=== PATIENT | female | born 1990 | race African-American/Black ===

== ENCOUNTER 2019-06-15 18:30 | Emergency (ER) | payer MEDICAID ==
[~2019-06-15] VITALS: Ht 170.2 cm; Wt 100.0 kg
[2019-06-15] MEDS ORDERED: HYDROCODONE/ACETAMINOPHEN 5/325MG TABLET PO ONE (20:15)
[2019-06-15] MEDS ORDERED: BACITRACIN ZINC OINT UDPKT TOP ONE (20:15)
[2019-06-15] MEDS ORDERED: LIDOCAINE HCL/PF 1% 10 MG/ML 5ML VIAL IJ ONE (21:15)
[2019-06-15] MEDS ORDERED: KETOROLAC 30MG/ML VIAL IM ONE (22:15)
[2019-06-16 06:06] VITALS: BP 135/82
== END 2019-06-16 06:08 | disposition home or self-care (01) ==
LOC: ER 18:30
DX: S00.83XA Contusion of other part of head, initial encounter (principal); S02.2XXA Fracture of nasal bones, initial encounter for closed fracture; Y08.89XA Assault by other specified means, initial encounter; Y93.89 Activity, other specified; Y92.89 Other specified places as the place of occurrence of the external cause; Y99.8 Other external cause status
CPT/HCPCS: 70450; 70486; 73140; 81025; 96372; 99284; C1893; J1885; J3490

== ENCOUNTER 2025-06-12 00:57 | Emergency (ER) | payer MEDICAID ==
[~2025-06-12] VITALS: Ht 182.9 cm; Wt 105.0 kg
[2025-06-12 01:00] VITALS: O2SAT 98
[2025-06-12 03:36] LABS: BASOPHILS % 0.5 % (0.0-2.0); EOSINOPHILS % 0.8 % (0.0-5.0); HEMATOCRIT. 39.6 % (36.0-48.0); HEMOGLOBIN. 13.1 g/dL (12.0-16.0); LYMPHOCYTES % 26.7 % (20.0-50.0); MEAN PLATELET VOLUME 7.8 fl (7.4-10.4); MONOCYTES % 5.3 % (2.0-8.0); NEUTROPHILS % 66.7 % (40.0-76.0); PLATELET 383 x1000/uL (130-400); RED BLOOD CELL COUNT 4.25 mill/uL (4.2-5.4); RED CELL DISTRIBUTION WIDTH 12.8 % (11.6-14.6)
[2025-06-12 03:48] LABS: CREATININE 0.8 mg/dL (0.6-1.0); UREA NITROGEN BLOOD 7 mg/dL (9-23)
[2025-06-12 03:49] LABS: ETHANOL BLOOD < 10 mg/dL (<10)
[2025-06-12 03:54] LABS: CLARITY URINE CLOUDY (CLEAR); COLOR URINE YELLOW (YELLOW); GLUCOSE URINE NEGATIVE (NEGATIVE); KETONES URINE NEGATIVE (NEGATIVE); LEUKOCYTE ESTERASE URINE NEGATIVE (NEGATIVE); NITRITE URINE NEGATIVE (NEGATIVE); OCCULT BLOOD URINE NEGATIVE (NEGATIVE); PH URINE 5.5 (4.5-8.0); PROTEIN URINE NEGATIVE (NEGATIVE); SPECIFIC GRAVITY URINE 1.015 (1.005-1.030); UROBILINOGEN URINE 1.0 E.U./dL (0.2-1.0)
[2025-06-12] MEDS: QUETIAPINE FUMARATE 50MG TABLET PO NR (04:06)
[2025-06-12] MEDS: LOPERAMIDE HCL 2MG CAPSULE PO NR (04:06)
[2025-06-12 04:15] LABS: HCG SCREEN NEGATIVE
[2025-06-12 04:32] LABS: *AMPHETAMINES SCREEN URINE PRESUMPTIVE POSITIVE (NEGATIVE); *BARBITURATES SCREEN URINE NEGATIVE (NEGATIVE); *BENZODIAZEPINES SCREEN URINE NEGATIVE (NEGATIVE); *COCAINE SCREEN URINE NEGATIVE (NEGATIVE); CANNABINOID URINE SCREEN NEGATIVE (NEGATIVE); ECSTASY MDMA SCREEN URINE NEGATIVE (NEGATIVE); METHADONE URINE SCREEN NEGATIVE (NEGATIVE); OPIATES URINE SCREEN NEGATIVE (NEGATIVE); PHENCYCLIDINE URINE SCREEN NEGATIVE (NEGATIVE)
[2025-06-12 04:42] LABS: SQUAMOUS EPITHELIAL CELL URINE FEW /lpf (RARE/1+)
[2025-06-12 04:45] LABS: RBC URINE 0-2 /hpf (0-2); WBC URINE 0-2 /hpf (0-2)
[2025-06-12 04:46] LABS: BACTERIA URINE 1+
[2025-06-12 05:01] LABS: ASPARTATE AMINOTRANSFERASE 14 IU/L (<34); BILIRUBIN DIRECT 0.1 mg/dL (<=3.0); BILIRUBIN TOTAL 0.4 mg/dL (0.1-1.0); PROTEIN TOTAL 7.0 g/dL (6.0-8.3)
[2025-06-12 09:52] VITALS: BP 113/74; PULSE 97; RESP 16; TEMP 37.3; O2SAT 97
== END 2025-06-12 10:00 ==
LOC: ER 00:57
DX: R45.851 Suicidal ideations (principal); F20.9 Schizophrenia, unspecified; F41.9 Anxiety disorder, unspecified; Z59.00 Homelessness unspecified; Z79.899 Other long term (current) drug therapy; Z20.822 Contact with and (suspected) exposure to COVID-19
CPT/HCPCS: 80076; 80305; 80048; 81003; 81025; 80307; 80329; 80320; 84703; 85025; 36415; 99285; 87426; Z7610; G0480